=== PATIENT | female | born 1975 | race Asian ===

== ENCOUNTER 2025-06-23 08:32 | Emergency (ER) | payer OTHER, SELFPAY ==
[2025-06-23 08:43] VITALS: BP 152/95; PULSE 61; RESP 16; TEMP 36.4; O2SAT 99; BMI 23.8
--- NOTE | 2025-06-23 08:58 | ED_ITS ---
HPI - Abdominal Pain General Time Seen by Provider: 08:58 Date Seen: 06/23/25 Chief Complaint: Abdominal Pain Stated Complaint: Abdomen pain and black stool for 3 days Time Seen by Provider: 06/23/25 08:58 Source: patient, RN notes reviewed and language interpreter Mode of arrival: ambulatory Limitations: no limitations History of Present Illness HPI narrative: This 49-year-old patient is referred to the ER from [facility] with complaint of bloating in her stomach and a constant dull ache. The bloating started on Friday. She denies any heartburn, no nausea or vomiting, no change in appetite. She had 1 episode of black stool on Friday. She has had no prior abdominal surgeries. No urinary symptoms, no fevers or chills. Related Data Previous Rx's ?Medication ?Instructions ?Recorded omeprazole 40 mg capsule,delayed 40 mg PO DAILY #14 ca ps 06/23/25 release Allergies Allergy/AdvReac Type Severity Reaction Status Date / Time No Known Drug Allergies Allergy Verified 06/23/25 10:03 Review of Systems Status of ROS Reports: 6 or more systems reviewed and unremarkable except as noted in History and below PFSH [facility] Social History Smoking Status: Never smoker How often do you have a drink containing alcohol: never AUDIT-C Alcohol total score: 0 Non-prescribed substance use: denies use Exam Const: Vital Signs, click to edit/add: Vital Signs - 24 hr 06/23/25 08:43 06/23/25 10:56 Temperature 97.5 F L Pulse Rate [Pulse Oximeter] 61 68 Respiratory Rate 16 18 Blood Pressure [Ri ght Upper Arm] 152/95 H 128/95 H Pulse Oximetry 99 100 Oxygen Delivery Me thod Room Air This 49-year-old female is alert, interactive, no apparent distress. Sclera clear, pupils equal round reactive. Symmetrical facial function, speech is distinct. Lungs are clear, good air entry, no wheeze or crackles, no tachypnea, no accessory muscle use. CV regular rate and rhythm, no murmur, normal S1-S2, no S3-S4. Abdomen is soft, nontender, nondistended, no organomegaly, no rebound or guarding. Skin visualized without any rash. Patient was ambulatory into the ED of her own accord. Documenting provider has reviewed patient's vital signs: yes Course Course ED Course: Reviewed with patient that we are going to get labs, we will need to place an IV as will be doing a CT with IV contrast. She certainly could have diverticulitis, colitis, ulcer disease. We will get CT of her abdomen pelvis to rule out such things as underlying masses, will help identify any pathology within the bowel. She does not provide history for reflux. She is hemodynamically stable here. Will certainly be checking her hemoglobin. Will order fecal occult blood. Reevaluation(s) Time of Reevaluation #1: 10:53 Reevaluation #1: Have reviewed normal labs to this point, normal CT outside of the small cyst in the ovary. I am highly doubtful that this small cyst is causing her issues. She believes that she is done endoscopy through [facility] before. Did collect fecal occult, external anus normal, rectal vault felt normal. There is minimal stool collected. Urinalysis has been sent as well. Time of Reevaluation #2: 11:14 Reevaluation #2: Have reviewed with patient that her fecal occult blood did come back negative and urinalysis is reassuring. We did discuss stomach pathology like ulcers or gastritis as a possible cause of melena. There is no blood that we are seen at this time on this isolated fecal occult specimen. Reviewed treatment with omeprazole and having her get an EGD in follow-up. I was going to prescribed omeprazole for her and have her follow up in clinic. She is requesting that I schedule her EGD. Reviewed with her that I can only schedule her EGD through [facility] here. She is requesting I do this and schedule her here as that will be quicker for the patient. Vital Signs Vital signs: Initial Vital Signs Temperature 97.5 F L 06/23/25 08:43 Temperature Source Temporal Artery Scan 06/23/25 08:43 Pulse Rate 61 06/23/25 08:43 Respiratory Rate 16 06/23/25 08:43 Blood Pressure 152/95 H 06/23/25 08:43 Blood Pressure Mean 114 H 06/23/25 08:43 Blood Pressure Position Sitting 06/23/25 08:43 Pulse Oximetry 99 06/23/25 08:43 Oxygen Delivery Method Room Air 06/23/25 08:43 Vital Signs Temperature 97.5 F L 06/23/25 08:43 Pulse Rate 61 06/23/25 08:43 Respiratory Rate 16 06/23/25 08:43 Blood Pressure 152/95 H 06/23/25 08:43 Pulse Oximetry 99 06/23/25 08:43 Oxygen Delivery Method Room Air 06/23/25 08:43 Temperature 97.5 F L 06/23/25 08:43 Pulse Rate 68 06/23/25 10:56 Respiratory Rate 18 06/23/25 10:56 Blood Pressure 128/95 H 06/23/25 10:56 Pulse Oximetry 100 06/23/25 10:56 Oxygen Delivery Method Room Air 06/23/25 08:43 MDM - Abdominal Pain MDM Narrative Medical decision making narrative: In patient's [facility] chart, I can see that she had colonoscopy done on 02/18/2024, done for routine screening. It was her 1st colonoscopy. It was completely normal, no polyps. There were no specimens collected. Lab Data Attestation: I reviewed the patient's lab results. Labs: Lab Results 06/23/25 06/23/25 06/23/25 Range/Units 09:15 10:50 Unknown WBC 5.45 (4.50-11.00) K/uL RBC 4.10 (4.00-5.20) m/uL Hgb 12.1 (12.0-16.0) gm/dL Hct 38.6 (33.0-51.0) % MCV 94 (80-100) fL MCH 30 (26-34) pg MCHC 31 L (32-36) gm/dL RDW Coeff of Jaz 12.5 (11.5-15.5) % Plt Count 281 (140-440) K/uL Neut % (Auto) 65.8 (42.0-72.0) % Lymph % (Auto) 25.9 (20-44) % Pine % (Auto) 6.2 (0.0-11.0) % Eos % (Auto) 1.7 (0.0-7.0) % Baso % (Auto) 0.4 (0.0-3.0) % Neut # (Auto) 3.59 (1.7-7.0) K/uL Lymph # (Auto) 1.41 (0.90-2.90) K/uL Pine # (Auto) 0.30 (0.00-0.90) K/UL Eos # (Auto) 0.09 (0.00-0.50) K/uL Baso # (Auto) 0.02 (0.00-0.30) K/uL Abs Immat Gran (auto) 0.00 (0.00-0.30) K/uL Imm/Tot Granulo (auto) 0.0 % INR 0.90 L (0.91-1.10) APTT 34 H (23-33) Seconds Sodium 135 (135-149) mmol/L Potassium 3.3 L (3.6-5.1) mmol/L Chloride 104 (96-114) mmol/L Carbon Dioxide 26 (20-32) mmol/L Anion Gap 5 L (7-15) mEq/L BUN 9 (5-24) mg/dL Creatinine 0.5 (0.5-1.5) mg/dL Estimated Creat Clear 107.65 Estimated GFR 115 ml/min Glucose 100 (60-115) mg/dL Lactate 0.9 (0.5-1.9) mmol/L Calcium 8.6 (8.4-10.6) mg/dL Total Bilirubin 0.3 (0.1-1.5) mg/dL AST 21 (12-35) U/L ALT 20 (4-35) U/L Alkaline Phosphatase 52 (40-150) U/L C-Reactive Protein < 0.5 L (0.5-1.0) mg/dL Total Protein 6.4 (6.0-8.3) g/dL Albumin 3.7 (3.3-5.0) g/dL Urine Color Yellow (Yellow) Urine Appearance Clear (Clear) Urine pH 8.0 (5.0-8.5) Ur Specific [place] 1.015 (1.000-1.030) Urine Protein Negative (Negative) Urine Glucose (UA) Negative (Negative) Urine Ketones Negative (Negative) Urine Blood Negative (Negative) Urine Nitrite Negative (Negative) Urine Bilirubin Negative (Negative) Urine Urobilinogen 0.2 (0.2-1.0) Ur Leukocyte Esterase Trace A (Negative) Urine RBC 0-2 (0-2) Urine WBC 0-2 (0-5) Ur Squamous Epith Cells None (None-Few) Urine Bacteria None (None) Stool Occult Blood Negative (Negative) Imaging Data CT scan - abdomen: Attestation: I have reviewed the pertinent imaging results. Radiologist's impression: Patient: EMMA NEVAREZ Facility:?[facility] RIS Patient ID:?[id number] Site Patient ID:?[id number]. Site :?[id number] Study:?CT-Abdomen/Pelvis 69CC ISOVUE 370-06/23/2025 10:02:56 AM Ordering Physician:Kenya Robles Final Report: INDICATION: Abdominal pain. TECHNIQUE: : CT abdomen and pelvis acquired with 69 cc Omnipaque 350 IV contrast. COMPARISON: None. FINDINGS: Lung bases are clear. The liver is normal in size. No definite liver lesion is seen. The gallbladder partially distended. No significant inflammatory fat stranding or fluid to suggest acute cholecystitis. Lesion. Spleen normal in size. The pancreas is stranding or main ductal dilatation. The adrenal glands are normal. The kidneys are symmetric enhancement without hydronephrosis. The urinary bladder is partially distended. The colon is nondilated. There is some liquid stool noted within the right colon which could reflect a diarrheal state. No significant inflammatory fat stranding is seen to suggest colitis. The appendix is partially obscured. There is a small calcification noted (series 2, image 92). There is no periappendiceal stranding seen to suggest acute appendicitis. The small bowel is nondilated without evidence of a small-bowel obstruction. The stomach is partially distended. This limits evaluation. No free air. No ascites. No organized drainable fluid collection. Prominent lower uterine segment, likely physiologic. Likely small left ovarian cyst. Portal vein is patent. The aorta is nonaneurysmal. No lymphadenopathy is seen. Bone windows demonstrate no suspicious lytic or sclerotic lesion. No fracture. IMPRESSION: 1. No gross CT acute finding within the abdomen and pelvis. 2. Prominent lower uterine segment, likely physiologic. Evidence of tiny left ovarian cyst. Follow-up pelvic ultrasound may be performed for evaluation if this patient is having pelvic pain. Please note that all CT scans at this facility use dose modulation, iterative reconstruction, and/or weight-based dosing when appropriate to reduce radiation dose to as low as reasonably achievable. Dictated by Sigifredo Wang MD @ 06/23/2025 10:15:33 AM (Electronic Signature) Discharge Plan Discharge Clinical Impression: Complaint of melena Abdominal pain Qualifiers: Abdominal location: generalized Qualified Code(s): R10.84 - Generalized abdominal pain Patient Disposition: Home, Self-Care Condition: Stable Instructions: Abdominal Pain (ED), Melena (ED) Additional Instructions: EGD scheduled at [facility], for Friday, 06/28 , at 9:30AM. Start omeprazole and take as prescribed. If you note increasing abdominal pain, have fever with abdominal pain, started vomiting, have increased bleeding noted, need to return in the interim. Activity Level: Activity as Tolerated Prescriptions: New omeprazole 40 mg capsule,delayed release(DR/EC) 40 mg PO DAILY Qty: 14 0RF Follow Up/Referrals: Provider,Not a Local [Primary Care Provider, Family Practice] Stand Alone Forms: Rii[employer] Info Instructions
--- NOTE | 2025-06-23 09:01 | CRLHL7_ITS ---
For Patients: As a result of the Century Cures Act, medical imaging exams and procedure reports are released immediately into your electronic medical record. You may view this report before your referring provider. If you have questions, please contact your health care provider. INDICATION: Abdominal pain. TECHNIQUE: : CT abdomen and pelvis acquired with 69 cc Omnipaque 350 IV contrast. COMPARISON: None. FINDINGS: Lung bases are clear. The liver is normal in size. No definite liver lesion is seen. The gallbladder partially distended. No significant inflammatory fat stranding or fluid to suggest acute cholecystitis. Lesion. Spleen normal in size. The pancreas is stranding or main ductal dilatation. The adrenal glands are normal. The kidneys are symmetric enhancement without hydronephrosis. The urinary bladder is partially distended. The colon is nondilated. There is some liquid stool noted within the right colon which could reflect a diarrheal state. No significant inflammatory fat stranding is seen to suggest colitis. The appendix is partially obscured. There is a small calcification noted (series 2, image 92). There is no periappendiceal stranding seen to suggest acute appendicitis. The small bowel is nondilated without evidence of a small-bowel obstruction. The stomach is partially distended. This limits evaluation. No free air. No ascites. No organized drainable fluid collection. Prominent lower uterine segment, likely physiologic. Likely small left ovarian cyst. Portal vein is patent. The aorta is nonaneurysmal. No lymphadenopathy is seen. Bone windows demonstrate no suspicious lytic or sclerotic lesion. No fracture. IMPRESSION: 1. No gross CT acute finding within the abdomen and pelvis. 2. Prominent lower uterine segment, likely physiologic. Evidence of tiny left ovarian cyst. Follow-up pelvic ultrasound may be performed for evaluation if this patient is having pelvic pain. Please note that all CT scans at this facility use dose modulation, iterative reconstruction, and/or weight-based dosing when appropriate to reduce radiation dose to as low as reasonably achievable. Dictated by Sigifredo Wang MD @ 06/23/2025 10:15:33 AM (Electronically Signed)
[2025-06-23 09:29] LABS: Hematocrit* 38.6 % (33.0-51.0); Hemoglobin* 12.1 gm/dL (12.0-16.0); Immature Granulocytes Abs Auto 0.00 K/uL (0.00-0.30); Immature Granulocytes Pct Auto 0.0 %; Lymphocytes Absolute Auto 1.41 K/uL (0.90-2.90); Mean Corpuscular HGB Conc 31 gm/dL (32-36); Mean Corpuscular Hemoglobin 30 pg (26-34); Mean Corpuscular Volume 94 fL (80-100); RDW Coefficient of Variation % 12.5 % (11.5-15.5); Red Blood Count* 4.10 m/uL (4.00-5.20); White Blood Count* 5.45 K/uL (4.50-11.00)
[2025-06-23 09:30] LABS: Lactate* 0.9 mmol/L (0.5-1.9)
[2025-06-23 09:31] LABS: Slide Review Reflex No
[2025-06-23 09:55] LABS: INR 0.90 (0.91-1.10); Prothrombin Time 13.0 Seconds
[2025-06-23 10:00] LABS: Albumin* 3.7 g/dL (3.3-5.0); Chloride* 104 mmol/L (96-114); Potassium* 3.3 mmol/L (3.6-5.1); Sodium* 135 mmol/L (135-149)
[2025-06-23 10:03] LABS: Alanine Aminotransferase* 20 U/L (4-35); Alkaline Phosphatase* 52 U/L (40-150); Anion Gap 5 mEq/L (7-15); Aspartate Amino Transferase* 21 U/L (12-35); Bilirubin Total* 0.3 mg/dL (0.1-1.5); Blood Urea Nitrogen* 9 mg/dL (5-24); Calcium* 8.6 mg/dL (8.4-10.6); Carbon Dioxide* 26 mmol/L (20-32); Creatinine* 0.5 mg/dL (0.5-1.5); Est. Creatinine Clearance* 107.65; Estimated Glomerular Filt Rate 115 ml/min; Glucose* 100 mg/dL (60-115); Total Protein* 6.4 g/dL (6.0-8.3)
[2025-06-23 10:44] LABS: Appearance Urine Clear (Clear)
[2025-06-23 10:56] VITALS: BP 128/95; PULSE 68; RESP 18; O2SAT 100
[2025-06-23 11:04] LABS: Fecal Occult Blood* Negative (Negative)
== END 2025-06-23 11:51 | disposition home or self-care (01) ==
PROVIDERS: Emergency Provider Family Medicine
DX: R10.84 Generalized abdominal pain (principal); N83.202 Unspecified ovarian cyst, left side
CPT/HCPCS: 36415; 74177; 80053; 81001; 82270; 83605; 85025; 85610; 85730; 86140; 87086; 94761; 99284; 99285; Q9967

== ENCOUNTER 2025-06-28 09:15 | Outpatient (CLI) | payer OTHER, SELFPAY ==
--- NOTE | 2025-06-28 10:29 | P.ANES_ITS ---
Anesthesia Charges Start Date/Time Anesthesia Start Date: 06/28/25 Anesthesia Start Time: 10:10 Stop Date/Time Anesthesia Stop Date: 06/28/25 Anesthesia Stop Time: 10:26 Coding CPT Codes CPT Codes: ANES UPR GI NDSC PX NOS - 93274 ([id number]) P1 - NORMAL HEALTHY PATIENT, QK - MUCK OPERATOR 2-4 CNCRNT ANES PROC, QX - RESEARCH [employer] SVNicol W/ MED DIRECTION
--- NOTE | 2025-06-28 10:29 | W.ANESCHARGE ---
Anesthesia Charges Start Date/Time Anesthesia Start Date: 06/28/25 Anesthesia Start Time: 10:10 Stop Date/Time Anesthesia Stop Date: 06/28/25 Anesthesia Stop Time: 10:26 Coding CPT Codes CPT Codes: ANES UPR GI NDSC PX NOS - 17624 ([id number]) P1 - NORMAL HEALTHY PATIENT, QK - INFO PRINT PRESS OPERATOR 2-4 CNCRNT ANES PROC, QX - MANAGER WHOLESALE SVNicol W/ MED DIRECTION
--- NOTE | 2025-06-28 10:52 | P.ANES_ITS ---
Anesthesia Charges Start Date/Time Anesthesia Start Date: 06/28/25 Anesthesia Start Time: 10:10 Stop Date/Time Anesthesia Stop Date: 06/28/25 Anesthesia Stop Time: 10:26 Coding CPT Codes CPT Codes: ANES UPR GI NDSC PX NOS - 43875 ([id number]) P1 - NORMAL HEALTHY PATIENT, QK - LOAN TELLER 2-4 CNCRNT ANES PROC, QX - PHARMACOEPIDEMIOLOGIST SVNicol W/ MED DIRECTION
--- NOTE | 2025-06-28 10:52 | W.ANESCHARGE ---
Anesthesia Charges Start Date/Time Anesthesia Start Date: 06/28/25 Anesthesia Start Time: 10:10 Stop Date/Time Anesthesia Stop Date: 06/28/25 Anesthesia Stop Time: 10:26 Coding CPT Codes CPT Codes: ANES UPR GI NDSC PX NOS - 08355 ([id number]) P1 - NORMAL HEALTHY PATIENT, QK - CORE INSERTER 2-4 CNCRNT ANES PROC, QX - MASTIC FLOOR LAYER SVNicol W/ MED DIRECTION
== END 2025-06-28 09:16 | disposition home or self-care (01) ==
LOC: OP CLINIC 09:16
PROVIDERS: Visit Provider Surgery
DX: K92.1 Melena (principal); K31.89 Other diseases of stomach and duodenum
CPT/HCPCS: 00731; 43239; J2704; J3010